=== PATIENT | female | born 1970 | race American Indian/Alaskan Native ===

== ENCOUNTER 2017-10-17 10:25 | Emergency (ER) | payer BC, OTHER ==
[2017-10-17 10:44] VITALS: BP 153/87
[2017-10-17] MEDS ORDERED: BENADRYL IV ONE (12:59)
[2017-10-17] MEDS ORDERED: REGLAN IV ONE (12:59)
[2017-10-17] MEDS ORDERED: NACL 0.9% 1000 ML 1,000 ML IV ONE (12:59)
[2017-10-17] MEDS ORDERED: ZOFRAN IV ONE (13:16)
--- NOTE | 2017-10-17 13:16 | Emergency Department Report ---
ED Headache HPI - General Chief Complaint: Headache Stated Complaint: HEADACHE Time Seen by Provider: 10/17/17 12:59 - History of Present Illness Initial Comments: This is a 47-year-old female nontoxic, well nourished in appearance, no acute signs of distress presents to the ED with c/o of headache x2 days. Patient descries headache as a gradual onset that is aching diffusely with level of 10/ 10. Patient stated that this is the worst headache. Patient denies any trauma to the head. Patient stated has history of headaches but this one is the worst. Patient denies taking anything OTC as she stated she does not like to take medications. Patient denies any blurry vision, stiff neck, nausea, vomiting, chest pain, shortness of breath, visual changes, numbness, tingling, abdominal pain. Patient states allergies to morphine and Percocet. Patient past medical history includes diabetes. Quality: moderate Head Injury Location: other (diffuse) Recent Head Trauma: no recent headache/trauma Associated Symptoms: denies symptoms. denies: confusion, fatigue, facial pain, fever/chills, flushing, loss of consciousness, nausea/vomiting, nasal congestion , nasal drainage, numbness in legs/feet, rash, seizures, sinus infection, stiff neck, vision changes, weakness Allergies/Adverse Reactions: Allergies acetaminophen [From Percocet] Allergy (Verified 10/17/17 10:40) Itching morphine Allergy (Verified 10/17/17 10:40) Unknown oxycodone [From Percocet] Allergy (Verified 10/17/17 10:40) Itching Home Medications: Ambulatory Orders Butalb/Acetamin/Caff 50-325-40 [Fioricet] 1 tab PO Q6HR PRN #30 tab 10/17/17 ED Review of Systems ROS: Stated complaint: HEADACHE Other details as noted in HPI Constitutional: denies: chills, fever Eyes: denies: eye pain, eye discharge, vision change ENT: denies: ear pain, throat pain Respiratory: denies: cough, shortness of breath, wheezing Cardiovascular: denies: chest pain, palpitations Endocrine: no symptoms reported Gastrointestinal: denies: abdominal pain, nausea, diarrhea Genitourinary: denies: urgency, dysuria, discharge Musculoskeletal: denies: back pain, joint swelling, arthralgia Skin: denies: rash, lesions Neurological: headache. denies: weakness, paresthesias Psychiatric: denies: anxiety, depression Hematological/Lymphatic: denies: easy bleeding, easy bruising ED Past Medical Hx - Past Medical History Previous Medical History?: Yes Hx Diabetes: Yes - Surgical History Past Surgical History?: Yes Additional Surgical History: x 2, Partial hysterectomy, Hysterectomy, Removal of adhesions after hysterectomy - Social History Smoking Status: Never Smoker Substance Use Type: Alcohol, Prescribed - Medications Home Medications: Home Medications Medication Instructions Recorded Confirmed Last Taken Type Butalb/Acetamin/Caff 50-325-40 1 tab PO Q6HR PRN #30 tab 10/17/17 Unknown Rx [Fioricet] ED Physical Exam - General Limitations: No Limitations General appearance: alert, in no apparent distress - Head Head exam: Present: atraumatic, normocephalic - Eye Eye exam: Present: normal appearance, PERRL, EOMI Pupils: Present: normal accommodation - ENT ENT exam: Present: normal exam, normal orophraynx, mucous membranes moist, TM's normal bilaterally, normal external ear exam - Neck Neck exam: Present: normal inspection, full ROM. Absent: tenderness, meningismus, lymphadenopathy, thyromegaly - Respiratory Respiratory exam: Present: normal lung sounds bilaterally. Absent: respiratory distress, wheezes, rales, rhonchi, stridor, chest wall tenderness, accessory muscle use, decreased breath sounds, prolonged expiratory - Cardiovascular Cardiovascular Exam: Present: regular rate, normal rhythm, normal heart sounds. Absent: irregular rhythm, systolic murmur, diastolic murmur, rubs, gallop - GI/Abdominal GI/Abdominal exam: Present: soft, normal bowel sounds. Absent: distended, tenderness, guarding, rebound, rigid, diminished bowel sounds - Rectal Rectal exam: Present: deferred - Extremities Exam Extremities exam: Present: normal inspection, full ROM, normal capillary refill. Absent: tenderness, pedal edema, joint swelling, calf tenderness - Back Exam Back exam: Present: normal inspection, full ROM. Absent: tenderness, CVA tenderness (R), CVA tenderness (L), muscle spasm, paraspinal tenderness, vertebral tenderness, rash noted - Neurological Exam Neurological exam: Present: alert, oriented X3, CN II-XII intact, normal gait, reflexes normal - Expanded Neurological Exam Expanded Patient oriented to: Present: person, place, time Cranial nerves: EOM's Intact: Normal, Gag Reflex: Normal, Tongue Deviation: Normal, Nystagmus: Normal, Facial Sensation: Normal, Facial Palsy with Forehead Movement: Normal, Facial Palsy without Forehead Movement: Normal Cerebellar function: Finger to Nose: Normal, Heel to [place]: Normal, Romberg: Normal Upper motor neuron: Boris Neglect: Normal, Pronator Drift: Normal, Babinski Sign : Normal, Sensory Extinction: Normal Sensory exam: Upper Extremity Light Touch: Normal, Upper Extremity Pin Prick: Normal, Upper Extremity Temperature: Normal, UE 2 Point Discrimination: Normal, Lower Extremity Light Touch: Normal, Lower Extremity Pin Prick: Normal, Lower Extremity Temperature: Normal, LE 2 Point Discrimination: Normal Motor strength exam: RUE: 5, LUE: 5, RLE: 5, LLE: 5 DTR: bicep (R): 2+, bicep (L): 2+, tricep (R): 2+, tricep (L): 2+, knee (R): 2+ , knee (L): 2+, ankle (R): 2+, ankle (L): 2+ Best Eye Response (Eva): (4) open spontaneously Best Motor Response (Ashley): (6) obeys commands Best Verbal Response (Ashley): (5) oriented Ashley Total: 15 - Psychiatric Psychiatric exam: Present: normal affect, normal mood - Skin Skin exam: Present: warm, dry, intact, normal color. Absent: rash ED Course Vital Signs 10/17/17 10:40 Temperature 98.4 F Pulse Rate 94 H Respiratory 20 Rate Blood Pressure 153/87 O2 Sat by Pulse 94 Oximetry - Reevaluation(s) Reevaluation #1: 10/17/17 13:10 Patient is speaking in full sentences with no signs of distress noted. ED Medical Decision Making - Medical Decision Making This is a 47-year-old female that presents with headache. Patient is stable and was examined by me. Due to patient stated worst headache for 2 days with nothing to relieve symptoms, a CT of head/brain w/o contrast and dictated by radiologist. Patient is notified of CT results with no questions noted. Patient received 1L of normal saline, Benadryl, and zofran. Patient stated symptoms of headache has resolved and subsided. Patient was instructed not to operate any machinery after discharge due to drowsiness of Benadryl which patient stated that her friend is currently in the waiting room and will drive her home. Patient is discharged with Fioricet. Patient was instructed Follow-up with a primary care doctor in 3-5 days or if symptoms worsen and continue return to emergency room as soon as possible. At time of discharge, the patient does not seem toxic or ill in appearance. No acute signs of distress noted. Patient agrees to discharge treatment plan of care. No further questions noted by the patient. Critical care attestation.: If time is entered above; I have spent that time in minutes in the direct care of this critically ill patient, excluding procedure time. ED Disposition Clinical Impression: Headache Qualifiers: Headache type: unspecified Headache chronicity pattern: acute headache Intractability: not intractable Qualified Code(s): R51 - Headache Disposition: DC-01 TO HOME OR SELFCARE Is pt being admited?: No Does the pt Need Aspirin: No Condition: Stable Instructions: Acute Headache (ED), Butalbital/Aspirin/Caffeine (By mouth) Additional Instructions: Follow-up with a primary care doctor in 3-5 days or if symptoms worsen and continue return to emergency room as soon as possible. Do not operate any machinery after discharge due to drowsiness of Benadryl. Prescriptions: Butalb/Acetamin/Caff 50-325-40 [Fioricet] 1 tab PO Q6HR PRN #30 tab PRN Reason: Headache Referrals: PRIMARY CARE, [Primary Care Provider] - 3-5 Days KIARA JI MD [Staff Physician] - 3-5 Days [facility] MD [Staff Physician] - 3-5 Days [facility] [Outside] - 3-5 Days [facility] [Outside] - 3-5 Days Forms: Work/School Release Form(ED)
[2017-10-17] MEDS ORDERED: ZOFRAN ONE (13:18)
--- NOTE | 2017-10-17 14:08 | Cat Scan Report ---
CT HEAD WITHOUT CONTRAST: HISTORY: Headache. TECHNIQUE: Sequential 2.5mm CT images. COMPARISON: none. FINDINGS: Cerebral Parenchyma: Within normal limits. Cerebellum: Within normal limits. Brainstem: Within normal limits. Ventricles: Normal. Sella: Normal. Extra-axial spaces: Normal. Basal Cisterns: Normal. Intracranial Hemorrhage: None. Midline Shift: None. Calvarium: Normal. Sinuses: Normal. Mastoid Air Cells: Normal. Visualized Orbits: Normal. IMPRESSION: Cranial CT scan within normal limits.
== END 2017-10-17 15:13 | disposition home or self-care (01) ==
LOC: ED 10:25
DX: R51 Headache (principal); E11.9 Type 2 diabetes mellitus without complications; Z88.6 Allergy status to analgesic agent
CPT/HCPCS: 70450; 96361; 96374; 96375; 99283; J1200; J2405; J7030

== ENCOUNTER 2017-12-25 09:36 | Emergency (ER) | payer BC ==
[2017-12-25 10:31] VITALS: BP 152/83
[2017-12-25] MEDS ORDERED: TORADOL IV ONE (10:48)
[2017-12-25] MEDS ORDERED: CLEOCIN 900 MG/50 mL 900 MG/50 ML BAG IV ONE (10:48)
--- NOTE | 2017-12-25 10:50 | Emergency Department Report ---
Blank Doc - Documentation Documentation: Patient is 47 years old female presented to the ER complaining of off right sided headache and swelling behind her right ear for 2 days. Patient denied any fever, nausea or vomiting. On exam patient does have mastoid tenderness on the right side. Facial bone is IV contrast CT scan was ordered. Patient received clindamycin, also received Toradol for pain. Patient will need further workup.
[2017-12-25 11:35] LABS: Basophils # (Auto) 0.1 K/mm3 (0.0-0.1); Basophils % (Auto) 0.9 % (0.0-1.8); Eosinophils # (Auto) 0.3 K/mm3 (0.0-0.4); Eosinophils % (Auto) 4.3 % (0.0-4.3); Hematocrit 39.2 % (30.3-42.9); Hemoglobin 12.8 gm/dl (10.1-14.3); Lymphocytes # (Auto) 2.1 K/mm3 (1.2-5.4); Lymphocytes % (Auto) 34.7 % (13.4-35.0); Mean Corpuscular HGB Conc 33 % (30-34); Mean Corpuscular Hemoglobin 25 pg (28-32); Mean Corpuscular Volume 77 fl (79-97); Monocytes # (Auto) 0.4 K/mm3 (0.0-0.8); Monocytes % (Auto) 6.9 % (0.0-7.3); Platelet Count 191 K/mm3 (140-440); Red Blood Count 5.07 M/mm3 (3.65-5.03); Red Cell Distribution Width 17.5 % (13.2-15.2)
[2017-12-25 11:51] LABS: Alanine Aminotransferase 15 units/L (7-56); Albumin 4.1 g/dL (3.9-5); BUN/Creatinine Ratio 18; Blood Urea Nitrogen 11 mg/dL (7-17); Calcium 9.1 mg/dL (8.4-10.2); Hemolysis Index 13
--- NOTE | 2017-12-25 12:48 | Cat Scan Report ---
CT FACIAL BONES WITHOUT CONTRAST: HISTORY: Right mastoid bone tenderness. TECHNIQUE: Helical CT images with sagittal and coronal CT reformations. FINDINGS: All paranasal sinuses are clear. No sinus wall fracture, fluid level or opacification. The orbital cavities are symmetric and intact. The mandible is intact. The skull base and upper cervical spine demonstrate no evidence for acute injury. IMPRESSION: Unremarkable CT of the facial bones.
--- NOTE | 2017-12-25 14:31 | Emergency Department Report ---
HPI - General Chief Complaint: Headache Time Seen by Provider: 12/25/17 10:42 - HPI HPI: Patient is 47 years old female presented to the ER complaining of swelling behind right ear, radiating to right side of head. Also complained and not to her right neck. This has been ongoing for 2 days and she denies any fever or chills. Denies any nausea or vomiting. She reports that she has chronic allergies and she has congestion and runny nose with postnasal drainage. Denies any trauma, dizziness or visual difficulties. Pain is achy and constant. Pain is 4-10 and worse with palpation and movement of neck. Denies any sore throat cough or shortness of breath. Denies any congestion. 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 ED Past Medical Hx - Past Medical History Previous Medical History?: Yes Hx Diabetes: Yes Additional medical history: Chronic allergies - Surgical History Past Surgical History?: Yes Additional Surgical History: x 2, Partial hysterectomy, Hysterectomy, Removal of adhesions after hysterectomy - Family History Family history: hypertension - Social History Smoking Status: Never Smoker Substance Use Type: None - Medications Home Medications: Home Medications Medication Instructions Recorded Confirmed Last Taken Type Butalb/Acetamin/Caff 50-325-40 1 tab PO Q6HR PRN #30 tab 10/17/17 Unknown Rx [Fioricet] Clindamycin [Clindamycin CAP] 300 mg PO Q8H 10 Days #30 cap 12/25/17 Unknown Rx Ibuprofen [Motrin] 600 mg PO Q8H PRN #12 tablet 12/25/17 Unknown Rx ED Review of Systems ROS: Stated complaint: HEADACHE/SWELLING BEHIND RIGHT EAR Other details as noted in HPI Comment: All other systems reviewed and negative Constitutional: no symptoms reported ENT: congestion, other (swelling behind right ear and radiated in). denies: ear pain, throat pain, dental pain, hearing loss, epistaxis Respiratory: no symptoms reported Cardiovascular: denies: chest pain, palpitations, dyspnea on exertion, edema, syncope, paroxysmal nocturnal dyspnea Gastrointestinal: denies: abdominal pain, nausea, vomiting, diarrhea, constipation Musculoskeletal: denies: back pain, joint swelling, arthralgia, myalgia Skin: denies: rash Neurological: headache. denies: weakness, numbness, paresthesias, confusion, abnormal gait, vertigo Hematological/Lymphatic: swollen glands Physical Exam - Physical Exam Vital Signs: Vital Signs 12/25/17 10:29 Temperature 98.4 F Pulse Rate 87 Respiratory 16 Rate Blood Pressure 152/83 O2 Sat by Pulse 99 Oximetry General: This is a 47-year-old female well-nourished well-developed in no acute distress Physical Exam: Head: Normocephalic, atraumatic, no abrasion, no bruising and no contusion. Eyes: Biateral pupils equal and reactive to light, bilateral EOM intact.. Bilateral conjunctival and sclera without injection, normal accommodation. No nystagmus Mouth: Mucosa dry, no pharyngeal exudate or erythema. No peritonsillar abscesses. Uvula is midline and oral airways patent. Ears: Bilateral TMs congested. Bilateral EAC without any redness swelling or drainage. Right mastoid bone tenderness without erythema or swelling Nose: Bilateral nasal mucosa pale and boggy. Clear drainage,Maxillary and frontal sinuses non-tender to palpate. Neck: Supple, positive posterior Cervical adenopathy, right, no lymphadenopathy to left neck, full range of motion and no C-spine tenderness. No swelling or tracheal deviation normal reflexes Cardiovascular: S1, S2. Regular rate and rhythm. No murmur. Capillary refill is less then 3 seconds. Lungs: Clear to auscultate bilaterally. No rhonchi, wheezes or rales. No chest wall tenderness. No chest contusion. No bruising to chest. MSK: Strength 5/5 in all extremities. No joint deformity or crepitus. Normal inspection. Full range of motion to all extremities. No laceration, abrasion or ecchymotic area noted. Abdomen: Non-tender to palpate in all quadrants, no guarding or rebound tenderness, positive bowel sounds in all quadrants. No CVA tenderness. No hernia, bruit or mass. No rigidity or distention. Extremities: No clubbing, cyanosis or edema. +2 pulses. No neurovascular compromise. Ambulates without any difficulties Skin: Clean, dry and intact. No rash or lesions. Neurological: GCS at 15, Pt is alert and oriented 3 speech is clear . 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 Normal gait. Negative Romberg and no pronator drift. Normal Reflexes. No motor or sensory deficit Psych: Normal mood and behavior ED Course Vital Signs 04/23/18 10:29 Temperature 98.4 F Pulse Rate 87 Respiratory 16 Rate Blood Pressure 152/83 O2 Sat by Pulse 99 Oximetry - Reevaluation(s) Reevaluation #1: 12/25/17 14:35 Patient given clindamycin 900 mg IV and Toradol 30 mg IV. She has no pain at present. ED Medical Decision Making - Lab Data Result diagrams: 12/25/17 11:11 12/25/17 11:11 Lab Results 12/25/17 12/25/17 Range/Units 11:11 11:11 WBC 6.1 (4.5-11.0) K/mm3 RBC 5.07 H (3.65-5.03) M/mm3 Hgb 12.8 (10.1-14.3) gm/dl Hct 39.2 (30.3-42.9) % MCV 77 L (79-97) fl MCH 25 L (28-32) pg MCHC 33 (30-34) % RDW 17.5 H (13.2-15.2) % Plt Count 191 (140-440) K/mm3 Lymph % (Auto) 34.7 (13.4-35.0) % [place] % (Auto) 6.9 (0.0-7.3) % Eos % (Auto) 4.3 (0.0-4.3) % Baso % (Auto) 0.9 (0.0-1.8) % Lymph # 2.1 (1.2-5.4) K/mm3 [place] # 0.4 (0.0-0.8) K/mm3 Eos # 0.3 (0.0-0.4) K/mm3 Baso # 0.1 (0.0-0.1) K/mm3 Seg Neutrophils % 53.2 (40.0-70.0) % Seg Neutrophils # 3.3 (1.8-7.7) K/mm3 Sodium 139 (137-145) mmol/L Potassium 4.4 (3.6-5.0) mmol/L Chloride 102.3 (98-107) mmol/L Carbon Dioxide 27 (22-30) mmol/L Anion Gap 14 mmol/L BUN 11 (7-17) mg/dL Creatinine 0.6 L (0.7-1.2) mg/dL Estimated GFR > 60 ml/min BUN/Creatinine Ratio 18 % Glucose 132 H (65-100) mg/dL Calcium 9.1 (8.4-10.2) mg/dL Total Bilirubin 0.30 (0.1-1.2) mg/dL AST 15 (5-40) units/L ALT 15 (7-56) units/L Alkaline Phosphatase 84 (35-129) units/L Total Protein 7.6 (6.3-8.2) g/dL Albumin 4.1 (3.9-5) g/dL Albumin/Globulin Ratio 1.2 % - Radiology Data Radiology results: report reviewed CT scan of facial bones and IV contrast reveals unremarkable CT of the facial bones. Dr. Ruiz confirmed that this include mastoid bone which had no signs of inflammatory processes - Medical Decision Making Patient reports that she has swelling behind her right ear and right-sided headache with lump to the right front side of her neck. Physical findings for lymphadenopathy posterior right neck that is tender to palpate. Patient also with tenderness to right mastoid bone without any swelling or erythema. Neurological exam is intact. CT scan of the facial bones and IV contrast reveals unremarkable CT of the facial bones. I spoke with radiologist, Dr. Ruiz informed me that the mastoid bone is intact and there is no sign of inflammatory processes to right mastoid bone. 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 She is To Have Allergic Rhinitis. I Discussed This Patient That Her CT Scan and Lab Work Were within Normal Limits and She Has Inflammation of Her Lymph Node to her neck and also still with allergic rhinitis. Patient says she has an appointment to follow-up with her allergies on and they told her that this will take some months for her to see any changes with medication regime that she is on. She says she's been on reaching for 2 months. Vital signs are stable she is afebrile. Please refer to radiology section for CT scan results and laboratory section for details and lab results. Patient was seen by attending physician in ER and screened. Patient given clindamycin 900 mg IV and Toradol 30 mg IV. Patient discharged home in stable condition with prescription for Augmentin and Motrin and to follow up with her footwear sales leader and PCP as scheduled. She voiced understanding of discharge instruction and treatment plan and discharged home in stable condition with her family Critical care attestation.: If time is entered above; I have spent that time in minutes in the direct care of this critically ill patient, excluding procedure time. ED Disposition Clinical Impression: Cervical adenitis Mastoid pain Qualifiers: Laterality: right Qualified Code(s): H92.01 - Otalgia, right ear Acute nonintractable headache Qualifiers: Headache type: unspecified Qualified Code(s): R51 - Headache Allergic rhinitis Qualifiers: Allergic rhinitis trigger: unspecified Allergic rhinitis seasonality: seasonal Qualified Code(s): J30.2 - Other seasonal allergic rhinitis Disposition: - TO HOME OR SELFCARE Is pt being admited?: No Does the pt Need Aspirin: No Condition: Stable Instructions: Acute Headache (ED), Allergic Rhinitis (ED), Adenitis (ED) Additional Instructions: Please follow-up with your primary care physician in 2-3 days for follow-up management of adenitis and acute headache. Follow-up the footwear sales leader as scheduled Continue to take allergy medication. Take antibiotics, clindamycin as scheduled Take Motrin and this will help the pain. Prescriptions: Clindamycin [Clindamycin CAP] 300 mg PO Q8H 10 Days #30 cap Ibuprofen [Motrin] 600 mg PO Q8H PRN #12 tablet PRN Reason: Pain Referrals: PRIMARY CARE, [Primary Care Provider] - 2-3 Days follow-up with [facility] [Other] - 2-3 Days Forms: Accompanied Note, Work/School Release Form(ED)
== END 2017-12-25 15:09 | disposition home or self-care (01) ==
LOC: ED 09:36
DX: H92.01 Otalgia, right ear (principal); I88.9 Nonspecific lymphadenitis, unspecified; R51 Headache; J30.9 Allergic rhinitis, unspecified; E11.9 Type 2 diabetes mellitus without complications
CPT/HCPCS: 36415; 70487; 80053; 85025; 96365; 96375; 99284; J1885

== ENCOUNTER 2018-11-07 08:25 | Emergency (ER) | payer BC ==
[2018-11-07] MEDS ORDERED: ASPIRIN PO ONE (08:38)
[2018-11-07] MEDS ORDERED: ZOFRAN IV ONE (08:59)
[2018-11-07] MEDS ORDERED: DILAUDID IV ONE (08:59)
[2018-11-07] MEDS ORDERED: BENADRYL IV ONE (08:59)
[2018-11-07 09:48] LABS: Basophils # (Auto) 0.1 K/mm3 (0.0-0.1); Basophils % (Auto) 1.4 % (0.0-1.8); Eosinophils # (Auto) 0.1 K/mm3 (0.0-0.4); Eosinophils % (Auto) 1.1 % (0.0-4.3); Hematocrit 39.1 % (30.3-42.9); Lymphocytes # (Auto) 2.6 K/mm3 (1.2-5.4); Lymphocytes % (Auto) 42.7 % (13.4-35.0); Mean Corpuscular HGB Conc 33 % (30-34); Mean Corpuscular Volume 82 fl (79-97); Monocytes # (Auto) 0.5 K/mm3 (0.0-0.8); Monocytes % (Auto) 8.6 % (0.0-7.3); Platelet Count 171 K/mm3 (140-440); Red Blood Count 4.77 M/mm3 (3.65-5.03); Red Cell Distribution Width 15.6 % (13.2-15.2)
[2018-11-07 09:50] LABS: Bilirubin,Urine NEG (Negative); Blood,Urine NEG (Negative); Color,Urine Yellow (Yellow); Hyaline Casts,Urine 1 /LPF; Mucus,Urine FEW /HPF; Protein,Urine <15 mg/dL mg/dL (Negative); Urobilinogen,Urine < 2.0 mg/dL (<2.0)
[2018-11-07 10:08] LABS: Amphetamine Screen,Urine PRESUMPTIVE NEGATIVE; Benzodiazepines Screen,Urine PRESUMPTIVE NEGATIVE; Cannabinoid Screen,Urine PRESUMPTIVE NEGATIVE; Cocaine Screen,Urine PRESUMPTIVE NEGATIVE; Methadone Screen,Urine PRESUMPTIVE NEGATIVE; Opiate Screen,Urine PRESUMPTIVE NEGATIVE
[2018-11-07 10:13] LABS: Alanine Aminotransferase 18 units/L (7-56); Albumin 4.4 g/dL (3.9-5); BUN/Creatinine Ratio 20; Blood Urea Nitrogen 12 mg/dL (7-17); Calcium 9.1 mg/dL (8.4-10.2); Hemolysis Index 7
[2018-11-07 10:17] LABS: Bilirubin,Direct < 0.2 mg/dL (0-0.2)
[2018-11-07 10:22] LABS: Partial Thromboplastin Time 26.9 Sec. (24.2-36.6)
[2018-11-07] MEDS ORDERED: TORADOL ONE (11:30)
[2018-11-07] MEDS ORDERED: TORADOL IV ONE (11:31)
--- NOTE | 2018-11-07 11:42 | XRay Report ---
AP CHEST : 11/07/18 11:26 CLINICAL: Chest pain. COMPARISON:None available. FINDINGS: Normal heart and pulmonary vessels. The lungs are normally expanded and clear. The bones and soft tissues are unremarkable. IMPRESSION: Normal chest.
[2018-11-07 14:28] VITALS: BP 142/97
--- NOTE | 2018-11-07 16:13 | Emergency Department Report ---
ED General Adult HPI - General Chief complaint: Chest Pain Stated complaint: CHEST PAIN Time Seen by Provider: 11/07/18 08:59 Source: EMS Mode of arrival: Stretcher Limitations: No Limitations - History of Present Illness Initial comments: 8-year-old female presents to the emergency department with right sided chest discomfort since yesterday. The patient denies shortness of breath cough recent travel leg pain or swelling. She states the right side of her chest hurts both anteriorly and posteriorly particularly on change of position or moving. A deep inspiration will make it worse but normal tidal volume has no effect. She denies cough. She states she has not had pain like this before. -: Gradual Location: chest Severity scale (0 -10): 0 Quality: aching Consistency: constant Improves with: movement Worsens with: none Associated Symptoms: denies other symptoms Treatments Prior to Arrival: none - Related Data Previous Rx's Medication Instructions Recorded Last Taken Type Butalb/Acetamin/Caff 50-325-40 1 tab PO Q6HR PRN #30 tab 10/17/17 Unknown Rx [Fioricet] Clindamycin [Clindamycin CAP] 300 mg PO Q8H 10 Days #30 cap 12/25/17 Unknown Rx Ibuprofen [Motrin] 600 mg PO Q8H PRN #12 tablet 12/25/17 Unknown Rx Naproxen [Naprosyn] 500 mg PO BID #14 tablet 11/07/18 Unknown Rx traMADol [Ultram 50 MG tab] 50 mg PO Q6HR PRN #14 tablet 11/07/18 Unknown Rx Allergies Allergy/AdvReac Type Severity Reaction Status Date / Time acetaminophen [From Percocet] Allergy Itching Verified 10/17/17 10:40 morphine Allergy Unknown Verified 10/17/17 10:40 oxycodone [From Percocet] Allergy Itching Verified 10/17/17 10:40 ED Review of Systems ROS: Stated complaint: CHEST PAIN Other details as noted in HPI Constitutional: denies: chills, fever Eyes: denies: eye pain, eye discharge, vision change ENT: denies: ear pain, throat pain Respiratory: denies: cough, shortness of breath, wheezing Cardiovascular: chest pain. denies: palpitations Endocrine: no symptoms reported Gastrointestinal: denies: abdominal pain, nausea, diarrhea Genitourinary: denies: urgency, dysuria, discharge Musculoskeletal: denies: back pain, joint swelling, arthralgia Skin: denies: rash, lesions Neurological: denies: headache, weakness, paresthesias Psychiatric: denies: anxiety, depression Hematological/Lymphatic: denies: easy bleeding, easy bruising ED Past Medical Hx - Past Medical History Hx Diabetes: Yes Additional medical history: Chronic allergies - Surgical History Additional Surgical History: x 2, Partial hysterectomy, Hysterectomy, Removal of adhesions after hysterectomy - Social History Smoking Status: Never Smoker Substance Use Type: None - Medications Home Medications: Home Medications Medication Instructions Recorded Confirmed Last Taken Type Butalb/Acetamin/Caff 50-325-40 1 tab PO Q6HR PRN #30 tab 10/17/17 Unknown Rx [Fioricet] Clindamycin [Clindamycin CAP] 300 mg PO Q8H 10 Days #30 cap 12/25/17 Unknown Rx Ibuprofen [Motrin] 600 mg PO Q8H PRN #12 tablet 12/25/17 Unknown Rx Naproxen [Naprosyn] 500 mg PO BID #14 tablet 11/07/18 Unknown Rx traMADol [Ultram 50 MG tab] 50 mg PO Q6HR PRN #14 tablet 11/07/18 Unknown Rx ED Physical Exam - General Limitations: No Limitations General appearance: alert, in no apparent distress - Head Head exam: Present: atraumatic, normocephalic - Eye Eye exam: Present: normal appearance. Absent: scleral icterus - ENT ENT exam: Present: mucous membranes moist - Neck Neck exam: Present: normal inspection. Absent: tenderness, meningismus - Respiratory Respiratory exam: Present: normal lung sounds bilaterally, chest wall tenderness. Absent: respiratory distress - Cardiovascular Cardiovascular Exam: Present: regular rate, normal rhythm. Absent: systolic murmur, diastolic murmur, rubs, gallop - GI/Abdominal GI/Abdominal exam: Present: soft, normal bowel sounds. Absent: distended, tenderness, guarding, rebound, rigid - Extremities Exam Extremities exam: Present: normal inspection - Back Exam Back exam: Present: normal inspection - Neurological Exam Neurological exam: Present: alert, oriented X3, CN II-XII intact. Absent: motor sensory deficit - Psychiatric Psychiatric exam: Present: normal affect, normal mood - Skin Skin exam: Present: warm, dry, intact, normal color. Absent: rash ED Course Vital Signs 03/02/2011/07/18 11/07/18 08:37 09:15 10:09 Temperature 98 F 98.4 F Pulse Rate 96 H 80 Respiratory 20 16 Rate Blood Pressure 151/91 Blood Pressure 120/87 [Right] O2 Sat by Pulse 100 100 Oximetry 11/07/18 11/07/18 11:00 13:00 Temperature Pulse Rate 68 68 Respiratory 14 18 Rate Blood Pressure Blood Pressure 129/80 142/97 [Right] O2 Sat by Pulse 100 100 Oximetry ED Medical Decision Making - Lab Data Result diagrams: 11/07/18 08:45 11/07/18 09:20 Laboratory Results - last 24 hr 11/07/18 11/07/18 11/07/18 08:45 09:20 09:20 WBC 6.0 RBC 4.77 Hgb 13.0 Hct 39.1 MCV 82 MCH 27 L MCHC 33 RDW 15.6 H Plt Count 171 Lymph % (Auto) 42.7 H [place] % (Auto) 8.6 H Eos % (Auto) 1.1 Baso % (Auto) 1.4 Lymph # 2.6 [place] # 0.5 Eos # 0.1 Baso # 0.1 Seg Neutrophils % 46.2 Seg Neutrophils # 2.8 APTT 26.9 D-Dimer < 135.0 Sodium 141 Potassium 4.8 Chloride 103.9 Carbon Dioxide 24 Anion Gap 18 BUN 12 Creatinine 0.6 L Estimated GFR > 60 BUN/Creatinine Ratio 20 Glucose 138 H Calcium 9.1 Magnesium 1.90 Total Bilirubin 0.40 Direct Bilirubin < 0.2 AST 17 ALT 18 Alkaline Phosphatase 70 Troponin T < 0.010 Total Protein 7.2 Albumin 4.4 Albumin/Globulin Ratio 1.6 Urine Color Urine Turbidity Urine pH Ur Specific [place] Urine Protein Urine Glucose (UA) Urine Ketones Urine Blood Urine Nitrite Urine Bilirubin Urine Urobilinogen Ur Leukocyte Esterase Urine WBC (Auto) Urine RBC (Auto) U Epithel Cells (Auto) Hyaline Casts Urine Mucus Urine Opiates Screen Urine Methadone Screen Ur Barbiturates Screen Ur Phencyclidine Scrn Ur Amphetamines Screen U Benzodiazepines Scrn Urine Cocaine Screen U Marijuana (THC) Screen Drugs of Abuse Note 11/07/18 11/07/18 09:20 09:20 WBC RBC Hgb Hct MCV MCH MCHC RDW Plt Count Lymph % (Auto) [place] % (Auto) Eos % (Auto) Baso % (Auto) Lymph # [place] # Eos # Baso # Seg Neutrophils % Seg Neutrophils # APTT D-Dimer Sodium Potassium Chloride Carbon Dioxide Anion Gap BUN Creatinine Estimated GFR BUN/Creatinine Ratio Glucose Calcium Magnesium Total Bilirubin Direct Bilirubin AST ALT Alkaline Phosphatase Troponin T Total Protein Albumin Albumin/Globulin Ratio Urine Color Yellow Urine Turbidity Clear Urine pH 5.0 Ur Specific [place] 1.019 Urine Protein <15 mg/dl Urine Glucose (UA) Neg Urine Ketones Neg Urine Blood Neg Urine Nitrite Neg Urine Bilirubin Neg Urine Urobilinogen < 2.0 Ur Leukocyte Esterase Neg Urine WBC (Auto) 4.0 Urine RBC (Auto) 1.0 U Epithel Cells (Auto) 1.0 Hyaline Casts 1 Urine Mucus Few Urine Opiates Screen Presumptive negative Urine Methadone Screen Presumptive negative Ur Barbiturates Screen Presumptive negative Ur Phencyclidine Scrn Presumptive negative Ur Amphetamines Screen Presumptive negative U Benzodiazepines Scrn Presumptive negative Urine Cocaine Screen Presumptive negative U Marijuana (THC) Screen Presumptive negative Drugs of Abuse Note Disclamer - EKG Data -: EKG Interpreted by [facility] EKG shows normal: sinus rhythm, axis, intervals, QRS complexes, ST-T waves Rate: normal - EKG Data Interpretation: other - Radiology Data Radiology results: report reviewed (no acute change) Critical care attestation.: If time is entered above; I have spent that time in minutes in the direct care of this critically ill patient, excluding procedure time. ED Disposition Clinical Impression: Musculoskeletal chest pain Disposition: DC- TO HOME OR SELFCARE Is pt being admited?: No Does the pt Need Aspirin: No Condition: Stable Instructions: Chest Pain (ED) Additional Instructions: Return any acute change or problem. Follow-up with your primary care provider. Prescriptions: Naproxen [Naprosyn] 500 mg PO BID #14 tablet traMADol [Ultram 50 MG tab] 50 mg PO Q6HR PRN #14 tablet PRN Reason: Pain Referrals: CYNTHIA ANGELES MD [Primary Care Provider] - 3-5 Days usual, primary care [Other] - 24 Hours Time of Disposition: 16:14
== END 2018-11-07 13:21 | disposition home or self-care (01) ==
LOC: ED 08:25
DX: R07.89 Other chest pain (principal); E11.9 Type 2 diabetes mellitus without complications; Z88.6 Allergy status to analgesic agent; Z88.5 Allergy status to narcotic agent
CPT/HCPCS: 36415; 71045; 80048; 80076; 80307; 81001; 83735; 84484; 85025; 85379; 85730; 93005; 93010; 96374; 96375; 99285; J1170; J1200; J1885; J2405